=== PATIENT | male | born 1970 | race African-American/Black ===

== ENCOUNTER 2017-10-07 17:26 | Emergency (ER) | payer SELFPAY ==
[~2017-10-07] VITALS: Ht 182.9 cm; Wt 80.0 kg
[~2017-10-07 17:26] MED LIST: HYDROCHLOROTHIAZIDE; METOPROLOL
[2017-10-07 17:38] VITALS: BP 153/91
== END 2017-10-07 18:23 | disposition left against medical advice (07) ==
LOC: ER 18:02
DX: Z00.8 Encounter for other general examination (principal); Z53.21 Procedure and treatment not carried out due to patient leaving prior to being seen by health care provider

== ENCOUNTER 2017-11-20 11:38 | Emergency (ER) | payer SELFPAY ==
[~2017-11-20] VITALS: Ht 182.9 cm; Wt 78.0 kg
[2017-11-20] MEDS ORDERED: TETRACAINE 0.5% OPHTH DROPS 4ML LEFTEYE ONE (18:00)
[2017-11-20] MEDS ORDERED: FLUORESCEIN SODIUM 1MG/STRIP RIGHTEYE ONE (18:15)
[2017-11-20 19:00] VITALS: BP 148/85
== END 2017-11-20 19:08 | disposition home or self-care (01) ==
LOC: ER 13:04
DX: S05.11XA Contusion of eyeball and orbital tissues, right eye, initial encounter (principal); S05.01XA Injury of conjunctiva and corneal abrasion without foreign body, right eye, initial encounter; S09.93XA Unspecified injury of face, initial encounter; I10 Essential (primary) hypertension; X58.XXXA Exposure to other specified factors, initial encounter; Y93.89 Activity, other specified; Y92.89 Other specified places as the place of occurrence of the external cause
CPT/HCPCS: 70486; 99284

== ENCOUNTER 2017-12-11 08:09 | Inpatient (IN) | payer SELFPAY ==
[~2017-12-11] VITALS: Ht 182.9 cm; Wt 78.0 kg
[2017-12-11] MEDS ORDERED: KETOROLAC 30MG/ML VIAL IV STA (10:57)
[2017-12-11] MEDS ORDERED: SODIUM CHLORIDE 0.9% 1,000 ML IV ONE (10:57)
[2017-12-11 11:25] LABS: HEMATOCRIT. 36.1 % (42.0-52.0); HEMOGLOBIN. 12.2 g/dL (14.0-18.0); MEAN CORPUSCULAR HEMOGLOBIN 35.1 pg (28.0-32.0); MEAN CORPUSCULAR VOLUME 103.6 fL (80.0-94.0); MEAN PLATELET VOLUME 8.2 fl (7.4-10.4); PLATELET 338 x1000/uL (130-400); RED BLOOD CELL COUNT 3.48 mill/uL (4.7-6.1)
[2017-12-11 11:29] LABS: CHLORIDE 101 mEq/L (98-107)
[2017-12-11 11:31] LABS: INR 0.9; PROTHROMBIN TIME 9.2 sec (9.4-11.6)
[2017-12-11 12:01] LABS: CLARITY URINE CLOUDY (CLEAR); COLOR URINE YELLOW (YELLOW); KETONES URINE TRACE (NEGATIVE); LEUKOCYTE ESTERASE URINE 1+ (NEGATIVE); NITRITE URINE NEGATIVE (NEGATIVE); OCCULT BLOOD URINE NEGATIVE (NEGATIVE); PROTEIN URINE 1+ (NEGATIVE); SPECIFIC GRAVITY URINE 1.021 (1.005-1.030); UROBILINOGEN URINE 0.2 E.U./dL (0.2-1.0)
[2017-12-11 12:07] LABS: PLATELET ESTIMATE NORMAL
[2017-12-11] MEDS ORDERED: VANCOMYCIN 1 G PREMIX 200 ML IV SCH ×2 (13:45→15:15)
[2017-12-11] MEDS ORDERED: ONDANSETRON HCL 4MG/2ML VIAL IV PRN (15:15)
[2017-12-11] MEDS ORDERED: ACETAMINOPHEN 325MG TABLET PO PRN (15:15)
[2017-12-11] MEDS: CLONIDINE 0.1MG TABLET PO PRN (15:26)
[2017-12-11] MEDS ORDERED: PIPERACILLIN/TAZ 3.375G PREMIX 50 ML IV NR (16:00)
[2017-12-11] MEDS: HYDROCODONE/ACETAMINOPHEN 5/325MG TABLET PO PRN ×2 (16:47→19:55)
[2017-12-11 17:00] VITALS: BP 117/77
[2017-12-11 20:00] VITALS: BP 141/80
[2017-12-11] MEDS: PIPERACILLIN/TAZ 3.375G PREMIX 50 ML IV SCH (20:27)
[2017-12-11] MEDS ORDERED: VANCOMYCIN 500 MG PREMIX 100 ML IV SCH (22:00)
[2017-12-12] VITALS: BP 155/83
[2017-12-12] MEDS: CLONIDINE 0.1MG TABLET PO PRN ×2 (00:54→10:03)
[2017-12-12] MEDS: HYDROCODONE/ACETAMINOPHEN 5/325MG TABLET PO PRN ×3 (00:55→10:03)
[2017-12-12] MEDS ORDERED: LISI10TA5 MT (01:51)
[2017-12-12] MEDS ORDERED: ALLO100T MT (01:51)
[2017-12-12 04:00] VITALS: BP 157/94
[2017-12-12] MEDS: PIPERACILLIN/TAZ 3.375G PREMIX 50 ML IV SCH ×2 (04:52→10:02)
[2017-12-12 05:58] LABS: BASOPHILS % 0.2 % (0.0-2.0); EOSINOPHILS % 0.9 % (0.0-5.0); HEMATOCRIT. 31.5 % (42.0-52.0); HEMOGLOBIN. 10.4 g/dL (14.0-18.0); LYMPHOCYTES % 9.5 % (20.0-50.0); MEAN CORPUSCULAR HEMOGLOBIN 34.5 pg (28.0-32.0); MEAN CORPUSCULAR VOLUME 104.4 fL (80.0-94.0); MEAN PLATELET VOLUME 8.5 fl (7.4-10.4); MONOCYTES % 11.1 % (2.0-8.0); NEUTROPHILS % 78.3 % (40.0-76.0); PLATELET 291 x1000/uL (130-400); RED BLOOD CELL COUNT 3.02 mill/uL (4.7-6.1); RED CELL DISTRIBUTION WIDTH 14.9 % (11.6-14.6)
[2017-12-12 06:35] LABS: CHLORIDE 103 mEq/L (98-107)
[2017-12-12 08:00] VITALS: BP 180/108
[2017-12-12] MEDS ORDERED: ALLOPURINOL 300 MG TABLET PO SCH (09:00)
[2017-12-12] MEDS ORDERED: AMLODIPINE 10MG TABLET PO SCH (09:00)
[2017-12-12 09:30] VITALS: BP 173/106
[2017-12-12] MEDS ORDERED: POTASSIUM CHLORIDE 20MEQ TABLET SR PO SCH (10:00)
[2017-12-12] MEDS ORDERED: VANCOMYCIN 750 MG PREMIX 150 ML IV SCH (10:00)
[2017-12-12 11:24] VITALS: BP 169/92
[2017-12-12 12:00] VITALS: BP 131/75
[2017-12-12] MEDS ORDERED: PIPERACILLIN/TAZ 3.375G PREMIX 50 ML IV SCH (18:00)
== END 2017-12-12 13:30 | disposition home or self-care (01) | DRG 383 ==
LOC: ER 08:59 → 6EST 14:07 → OBSVTOIN 14:07 → ENRESERV 14:33 → SUPCPDRO 15:09
PROVIDERS: ADMIT Hospitalist; ATTEND Hospitalist
DX: L03.113 Cellulitis of right upper limb (principal); N17.9 Acute kidney failure, unspecified; E87.6 Hypokalemia; I10 Essential (primary) hypertension; F17.200 Nicotine dependence, unspecified, uncomplicated; F12.90 Cannabis use, unspecified, uncomplicated; M10.9 Gout, unspecified; M70.20 Olecranon bursitis, unspecified elbow; Z79.899 Other long term (current) drug therapy
CPT/HCPCS: 36415; 73080; 73130; 80053; 81003; 83605; 84550; 85025; 85610; 87040; 96365; 96366; 96375; 99285; J1885; J2543; J3370; J7030

== ENCOUNTER 2017-12-16 09:18 | Inpatient (IN) | payer SELFPAY ==
[~2017-12-16] VITALS: Ht 182.9 cm; Wt 77.2 kg
[~2017-12-16 09:18] MED LIST changes: +ALLO100T MT; +LISI10TA5 MT
[2017-12-16] MEDS ORDERED: METHYLPREDNISOLONE SOD SUCC 40 MG/ML VIAL IV ONE (10:30)
[2017-12-16] MEDS ORDERED: DIPHENHYDRAMINE 50MG/ML VIAL IV ONE (10:30)
[2017-12-16] MEDS ORDERED: MORPHINE SULFATE 4 MG/ML CPJ (NOT FOR IM USE) IV ONE (11:30)
[2017-12-16 11:38] LABS: BASOPHILS % 0.6 % (0.0-2.0); EOSINOPHILS % 1.1 % (0.0-5.0); HEMATOCRIT. 30.2 % (42.0-52.0); LYMPHOCYTES % 9.5 % (20.0-50.0); MEAN CORPUSCULAR HEMOGLOBIN 34.1 pg (28.0-32.0); MEAN PLATELET VOLUME 7.3 fl (7.4-10.4); MONOCYTES % 10.1 % (2.0-8.0); NEUTROPHILS % 78.7 % (40.0-76.0); PLATELET 374 x1000/uL (130-400); RED BLOOD CELL COUNT 2.93 mill/uL (4.7-6.1); RED CELL DISTRIBUTION WIDTH 14.7 % (11.6-14.6)
[2017-12-16 11:44] LABS: CHLORIDE 108 mEq/L (98-107)
[2017-12-16 11:53] LABS: INR 0.9; PROTHROMBIN TIME 9.8 sec (9.4-11.6)
[2017-12-16 18:00] VITALS: BP 158/98
[2017-12-16] MEDS ORDERED: LISI40TA4 MT (18:11)
[2017-12-16] MEDS ORDERED: SULF1TAB47 MT (18:13)
[2017-12-16] MEDS ORDERED: MAGNESIUM/ALUMINUM HYDROXIDE/SIMETHICONE 30ML UDC PO PRN (19:00)
[2017-12-16] MEDS ORDERED: ONDANSETRON HCL 4MG/2ML VIAL IV PRN (19:00)
[2017-12-16] MEDS ORDERED: HYDROCODONE/ACETAMINOPHEN 5/325MG TABLET PO PRN (19:00)
[2017-12-16] MEDS ORDERED: ACETAMINOPHEN 325MG TABLET PO PRN (19:00)
[2017-12-16] MEDS ORDERED: NA PHOS,M-B/NA PHOS,DI-BA ENEMA 118ML PR PRN (19:00)
[2017-12-16] MEDS ORDERED: DOCUSATE SODIUM 100MG CAPSULE PO PRN (19:00)
[2017-12-16] MEDS ORDERED: GUAIFENESIN 200MG/10ML SUGAR FREE UDC PO PRN (19:00)
[2017-12-16] MEDS ORDERED: HYDROMORPHONE HCL/PF 2MG/ML CPJ IV PRN (19:00)
[2017-12-16] MEDS ORDERED: IPRATROPIUM/ALBUTEROL 0.5-3(2.5)MG/3ML NEB INH PRN (19:00)
[2017-12-16] MEDS ORDERED: DIPHENHYDRAMINE 50MG/ML VIAL IV PRN (19:00)
[2017-12-16] MEDS ORDERED: LORAZEPAM 2MG/ML CPJ IV PRN (19:00)
[2017-12-16] MEDS ORDERED: LORAZEPAM 0.5MG TABLET PO PRN (19:15)
[2017-12-16 20:00] VITALS: BP 162/90
[2017-12-16] MEDS ORDERED: ENOXAPARIN 40MG/0.4ML SYR SUBCUT SCH (20:00)
[2017-12-16] MEDS: METHYLPREDNISOLONE SOD SUCC 125 MG/2 ML VIAL IV SCH (21:12)
[2017-12-16] MEDS: CLONIDINE 0.1MG TABLET PO PRN (21:14)
[2017-12-16 23:17] LABS: CHLORIDE 106 mEq/L (98-107)
[2017-12-16 23:20] LABS: CLARITY URINE CLEAR (CLEAR); COLOR URINE YELLOW (YELLOW); KETONES URINE NEGATIVE (NEGATIVE); LEUKOCYTE ESTERASE URINE NEGATIVE (NEGATIVE); NITRITE URINE NEGATIVE (NEGATIVE); OCCULT BLOOD URINE NEGATIVE (NEGATIVE); PROTEIN URINE NEGATIVE (NEGATIVE); SPECIFIC GRAVITY URINE 1.018 (1.005-1.030); UROBILINOGEN URINE 0.2 E.U./dL (0.2-1.0)
[2017-12-17] VITALS: BP 161/87
[2017-12-17 00:28] LABS: *BENZODIAZEPINES SCREEN URINE NEGATIVE (NEGATIVE)
[2017-12-17 00:29] LABS: *COCAINE SCREEN URINE NEGATIVE (NEGATIVE)
[2017-12-17 00:30] LABS: *AMPHETAMINES SCREEN URINE NEGATIVE (NEGATIVE); CANNABINOID URINE SCREEN PRESUMTIVE POSITIVE (NEGATIVE); METHADONE URINE SCREEN NEGATIVE (NEGATIVE); OPIATES URINE SCREEN PRESUMTIVE POSITIVE (NEGATIVE); PHENCYCLIDINE URINE SCREEN NEGATIVE (NEGATIVE)
[2017-12-17 00:39] LABS: *BARBITURATES SCREEN URINE NEGATIVE (NEGATIVE)
[2017-12-17] MEDS: METHYLPREDNISOLONE SOD SUCC 125 MG/2 ML VIAL IV SCH ×2 (02:16→06:59)
[2017-12-17 04:00] VITALS: BP 172/100
[2017-12-17] MEDS: CLONIDINE 0.1MG TABLET PO PRN (04:34)
[2017-12-17 07:10] LABS: HEMATOCRIT. 31.8 % (42.0-52.0); HEMOGLOBIN. 10.6 g/dL (14.0-18.0); MEAN CORPUSCULAR HEMOGLOBIN 34.1 pg (28.0-32.0); MEAN CORPUSCULAR VOLUME 102.8 fL (80.0-94.0); MEAN PLATELET VOLUME 7.9 fl (7.4-10.4); PLATELET 429 x1000/uL (130-400); RED CELL DISTRIBUTION WIDTH 14.6 % (11.6-14.6)
[2017-12-17 07:45] LABS: CHLORIDE 106 mEq/L (98-107)
[2017-12-17 07:47] LABS: PLATELET ESTIMATE INCREASED
[2017-12-17 07:53] LABS: LDL CHOLESTEROL 99 mg/dL (5-100)
[2017-12-17 07:55] LABS: HDL CHOLESTEROL 60 mg/dL (40-59); T4 FREE 0.76 ng/dL (0.76-1.46)
[2017-12-17 08:10] VITALS: BP 152/73
[2017-12-17] MEDS ORDERED: ASPIRIN 81MG EC TABLET PO SCH (09:00)
== END 2017-12-17 08:40 | disposition home or self-care (01) | DRG 811 ==
LOC: ER 10:27 → 5WST 15:01 → EDBEDREQ 15:16 → ENRESERV 15:19 → ER 17:20 → CANBEDREQ 17:45
PROVIDERS: ADMIT Internal Medicine; ATTEND Internal Medicine
DX: T78.3XXA Angioneurotic edema, initial encounter (principal); N17.0 Acute kidney failure with tubular necrosis; R65.10 Systemic inflammatory response syndrome (SIRS) of non-infectious origin without acute organ dysfunction; E88.09 Other disorders of plasma-protein metabolism, not elsewhere classified; E87.70 Fluid overload, unspecified; F17.210 Nicotine dependence, cigarettes, uncomplicated; I10 Essential (primary) hypertension; I25.10 Atherosclerotic heart disease of native coronary artery without angina pectoris; Z79.899 Other long term (current) drug therapy; Z88.8 Allergy status to other drugs, medicaments and biological substances
CPT/HCPCS: 36415; 71045; 80048; 80053; 80061; 80305; 81003; 83036; 83735; 83880; 84439; 84443; 84484; 85025; 85610; 85651; 93005; 96374; 96375; 99285; J1200; J1650; J2270; J2920; J2930; J7030

== ENCOUNTER 2017-12-20 09:00 | Emergency (ER) | payer MEDICAID ==
[~2017-12-20] VITALS: Ht 182.9 cm; Wt 78.0 kg
[~2017-12-20 09:00] MED LIST changes: -HYDROCHLOROTHIAZIDE; -LISI10TA5 MT; -METOPROLOL; +SULF1TAB47 MT
[2017-12-20] MEDS ORDERED: KETOROLAC 30MG/ML VIAL IV STA (09:51)
[2017-12-20] MEDS ORDERED: LEVOFLOXACIN 750MG PREMIX 150 ML IV ONE (10:00)
[2017-12-20] MEDS: VANCOMYCIN 1 G PREMIX 200 ML IV SCH ×2 (10:20→12:27)
[2017-12-20 10:28] LABS: BASOPHILS % 0.7 % (0.0-2.0); EOSINOPHILS % 1.6 % (0.0-5.0); HEMATOCRIT. 31.1 % (42.0-52.0); HEMOGLOBIN. 10.4 g/dL (14.0-18.0); MEAN CORPUSCULAR HEMOGLOBIN 34.3 pg (28.0-32.0); MEAN CORPUSCULAR VOLUME 102.3 fL (80.0-94.0); MEAN PLATELET VOLUME 7.3 fl (7.4-10.4); MONOCYTES % 11.7 % (2.0-8.0); PLATELET 442 x1000/uL (130-400); RED BLOOD CELL COUNT 3.03 mill/uL (4.7-6.1); RED CELL DISTRIBUTION WIDTH 14.3 % (11.6-14.6)
[2017-12-20 10:31] LABS: CHLORIDE 109 mEq/L (98-107)
[2017-12-20 10:32] LABS: INR 0.9; PROTHROMBIN TIME 9.9 sec (9.4-11.6)
[2017-12-20 11:11] VITALS: BP 159/93
== END 2017-12-20 14:38 | disposition left against medical advice (07) ==
LOC: ER 10:30
DX: L03.113 Cellulitis of right upper limb (principal); M65.88 Other synovitis and tenosynovitis, other site; F17.200 Nicotine dependence, unspecified, uncomplicated; I10 Essential (primary) hypertension; M10.9 Gout, unspecified; F12.10 Cannabis abuse, uncomplicated; Z88.2 Allergy status to sulfonamides; Z88.8 Allergy status to other drugs, medicaments and biological substances; Z98.890 Other specified postprocedural states
CPT/HCPCS: 36415; 80053; 85025; 85610; 96365; 96375; 99284; J1885; J1956; J3370; J7040; Z7610

== ENCOUNTER 2019-05-24 12:16 | Emergency (ER) | payer SELFPAY ==
[~2019-05-24] VITALS: Ht 180.3 cm; Wt 75.0 kg
[2019-05-24] MEDS ORDERED: SODIUM CHLORIDE 0.9% 1,000 ML IV ONE ×2 (12:52→14:30)
[2019-05-24 13:48] LABS: BASOPHILS % 0.2 % (0.0-2.0); CHLORIDE 104 mEq/L (98-107); EOSINOPHILS % 0.5 % (0.0-5.0); HEMATOCRIT. 40.2 % (42.0-52.0); HEMOGLOBIN. 13.7 g/dL (14.0-18.0); LYMPHOCYTES % 8.5 % (20.0-50.0); MEAN CORPUSCULAR HEMOGLOBIN 34.8 pg (28.0-32.0); MEAN CORPUSCULAR VOLUME 102.2 fL (80.0-94.0); MEAN PLATELET VOLUME 8.1 fl (7.4-10.4); MONOCYTES % 5.8 % (2.0-8.0); PLATELET 114 x1000/uL (130-400); RED BLOOD CELL COUNT 3.94 mill/uL (4.7-6.1); RED CELL DISTRIBUTION WIDTH 21.2 % (11.6-14.6)
[2019-05-24 13:56] LABS: ETHANOL BLOOD < 10 mg/dL
[2019-05-24] MEDS ORDERED: LORAZEPAM 1MG TABLET PO ONE (14:30)
[2019-05-24] MEDS ORDERED: POTASSIUM CHLORIDE 20MEQ TABLET SR PO ONE (15:15)
[2019-05-24 15:22] VITALS: BP 162/89
[2019-05-24 16:04] LABS: CLARITY URINE CLOUDY (CLEAR); COLOR URINE DARK YELLOW (YELLOW); KETONES URINE 1+ (NEGATIVE); LEUKOCYTE ESTERASE URINE TRACE (NEGATIVE); NITRITE URINE POSITIVE (NEGATIVE); OCCULT BLOOD URINE NEGATIVE (NEGATIVE); PH URINE 5.5 (4.5-8.0); PROTEIN URINE 3+ (NEGATIVE); SPECIFIC GRAVITY URINE 1.032 (1.005-1.030)
[2019-05-24 16:18] LABS: OPIATES URINE SCREEN NEGATIVE (NEGATIVE)
[2019-05-24 16:20] LABS: *AMPHETAMINES SCREEN URINE NEGATIVE (NEGATIVE); *BARBITURATES SCREEN URINE NEGATIVE (NEGATIVE); *BENZODIAZEPINES SCREEN URINE PRESUMTIVE POSITIVE (NEGATIVE); *COCAINE SCREEN URINE NEGATIVE (NEGATIVE); CANNABINOID URINE SCREEN PRESUMTIVE POSITIVE (NEGATIVE); METHADONE URINE SCREEN NEGATIVE (NEGATIVE); PHENCYCLIDINE URINE SCREEN NEGATIVE (NEGATIVE)
== END 2019-05-24 15:22 | disposition home or self-care (01) ==
LOC: ER 12:16
DX: R53.1 Weakness (principal); R42 Dizziness and giddiness; R00.2 Palpitations; F12.10 Cannabis abuse, uncomplicated; I10 Essential (primary) hypertension; M10.9 Gout, unspecified; Z88.2 Allergy status to sulfonamides; Z88.8 Allergy status to other drugs, medicaments and biological substances
CPT/HCPCS: 36415; 71045; 80053; 80305; 80320; 81003; 85025; 93005; 96360; 96361; 99284; J7030; G0480

== ENCOUNTER 2019-06-10 08:13 | Inpatient (IN) | payer SELFPAY ==
[~2019-06-10] VITALS: Ht 182.9 cm; Wt 78.0 kg
[2019-06-10] MEDS ORDERED: KETOROLAC 30MG/ML VIAL IV STA (10:11)
[2019-06-10] MEDS ORDERED: ONDANSETRON HCL 4MG/2ML INJ IV STA (10:11)
[2019-06-10] MEDS ORDERED: SODIUM CHLORIDE 0.9% 1,000 ML IV ONE (10:11)
[2019-06-10] MEDS ORDERED: HYDRALAZINE 20MG/ML VIAL IV ONE ×2 (10:15→13:30)
[2019-06-10 12:15] LABS: BASOPHILS % 0.2 % (0.0-2.0); EOSINOPHILS % 0.7 % (0.0-5.0); HEMATOCRIT. 32.1 % (42.0-52.0); HEMOGLOBIN. 11.1 g/dL (14.0-18.0); LYMPHOCYTES % 7.2 % (20.0-50.0); MEAN CORPUSCULAR HEMOGLOBIN 36.2 pg (28.0-32.0); MEAN CORPUSCULAR VOLUME 104.2 fL (80.0-94.0); MEAN PLATELET VOLUME 8.4 fl (7.4-10.4); MONOCYTES % 11.3 % (2.0-8.0); NEUTROPHILS % 80.6 % (40.0-76.0); PLATELET 98 x1000/uL (130-400); RED BLOOD CELL COUNT 3.08 mill/uL (4.7-6.1); RED CELL DISTRIBUTION WIDTH 18.3 % (11.6-14.6)
[2019-06-10] MEDS ORDERED: CLONIDINE 0.2MG TABLET PO ONE (12:15)
[2019-06-10 12:20] LABS: CHLORIDE 104 mEq/L (98-107)
[2019-06-10 12:24] LABS: ETHANOL BLOOD < 10 mg/dL
[2019-06-10 12:25] LABS: D-DIMER 3.07 mg/L FEU (<0.50); INR 0.9; PARTIAL THROMBOPLASTIN TIME 30.4 sec (23.4-31.0); PROTHROMBIN TIME 9.7 sec (9.6-11.0)
[2019-06-10] MEDS ORDERED: POTASSIUM CHLORIDE 20MEQ TABLET SR PO ONE (13:30)
[2019-06-10] MEDS ORDERED: ASPIRIN 325MG EC TABLET PO ONE (13:30)
[2019-06-10] MEDS ORDERED: DOCUSATE SODIUM 100MG CAPSULE PO PRN (14:45)
[2019-06-10] MEDS ORDERED: NITROGLYCERIN 0.4MG TABLET SL SL PRN (14:45)
[2019-06-10] MEDS ORDERED: IPRATROPIUM/ALBUTEROL 0.5-3(2.5)MG/3ML NEB NEB PRN (14:45)
[2019-06-10] MEDS ORDERED: ONDANSETRON HCL 4MG/2ML INJ IV PRN (14:45)
[2019-06-10] MEDS ORDERED: ZOLPIDEM TARTRATE 5MG TABLET PO PRN (14:45)
[2019-06-10] MEDS ORDERED: GUAIFENESIN 200MG/10ML SUGAR FREE UDC PO PRN (14:45)
[2019-06-10] MEDS ORDERED: MAGNESIUM/ALUMINUM HYDROXIDE/SIMETHICONE 30ML UDC PO PRN (14:45)
[2019-06-10] MEDS ORDERED: CLONIDINE 0.1MG TABLET PO PRN (14:45)
[2019-06-10] MEDS ORDERED: LORAZEPAM 0.5MG TABLET PO PRN (14:45)
[2019-06-10 15:42] LABS: CLARITY URINE CLEAR (CLEAR); COLOR URINE YELLOW (YELLOW); KETONES URINE NEGATIVE (NEGATIVE); LEUKOCYTE ESTERASE URINE NEGATIVE (NEGATIVE); NITRITE URINE NEGATIVE (NEGATIVE); OCCULT BLOOD URINE NEGATIVE (NEGATIVE); PH URINE 5.5 (4.5-8.0); PROTEIN URINE TRACE (NEGATIVE); SPECIFIC GRAVITY URINE 1.011 (1.005-1.030); UROBILINOGEN URINE 0.2 E.U./dL (0.2-1.0)
[2019-06-10 16:28] LABS: CANNABINOID URINE SCREEN PRESUMTIVE POSITIVE (NEGATIVE)
[2019-06-10 16:29] LABS: *AMPHETAMINES SCREEN URINE NEGATIVE (NEGATIVE); *BARBITURATES SCREEN URINE NEGATIVE (NEGATIVE); *BENZODIAZEPINES SCREEN URINE NEGATIVE (NEGATIVE); *COCAINE SCREEN URINE NEGATIVE (NEGATIVE); METHADONE URINE SCREEN NEGATIVE (NEGATIVE); OPIATES URINE SCREEN NEGATIVE (NEGATIVE)
[2019-06-10 16:30] VITALS: BP_SYST 158; BP_SYST 174; BP_DIAS 88; BP_DIAS 94
[2019-06-10 16:30] LABS: PHENCYCLIDINE URINE SCREEN NEGATIVE (NEGATIVE)
[2019-06-10 16:41] LABS: FOLIC ACID (FOLATE) SERUM 10.4 ng/mL (>5.38)
[2019-06-10] MEDS: AMLODIPINE 10MG TABLET PO SCH (16:54)
[2019-06-10] MEDS: ACETAMINOPHEN 325MG TABLET PO PRN (16:54)
[2019-06-10] MEDS ORDERED: ENOXAPARIN 40MG/0.4ML SYR SUBCUT SCH (17:00)
[2019-06-10] MEDS: KETOROLAC 15MG/ML VIAL IV PRN (18:40)
[2019-06-10 20:00] VITALS: BP 127/76
[2019-06-10] MEDS: FAMOTIDINE 20MG TABLET PO SCH (21:05)
[2019-06-10] MEDS: ALLOPURINOL 100 MG TABLET PO SCH (21:08)
[2019-06-11] VITALS: BP 152/95
[2019-06-11 00:05] LABS: CREATINE KINASE 53 IU/L (39-308)
[2019-06-11 00:06] LABS: CREATINE KINASE MB FRACTION < 1.0 ng/mL (0.5-3.6)
[2019-06-11] MEDS: ACETAMINOPHEN 325MG TABLET PO PRN (00:40)
[2019-06-11 06:00] VITALS: BP 143/100
[2019-06-11 06:13] LABS: BASOPHILS % 0.2 % (0.0-2.0); HEMATOCRIT. 31.1 % (42.0-52.0); HEMOGLOBIN. 10.7 g/dL (14.0-18.0); LYMPHOCYTES % 16.4 % (20.0-50.0); MEAN CORPUSCULAR HEMOGLOBIN 36.4 pg (28.0-32.0); MEAN CORPUSCULAR VOLUME 106.3 fL (80.0-94.0); MEAN PLATELET VOLUME 9.1 fl (7.4-10.4); NEUTROPHILS % 66.4 % (40.0-76.0); PLATELET 116 x1000/uL (130-400); RED BLOOD CELL COUNT 2.93 mill/uL (4.7-6.1); RED CELL DISTRIBUTION WIDTH 18.4 % (11.6-14.6)
[2019-06-11 06:34] LABS: CHLORIDE 106 mEq/L (98-107)
[2019-06-11 06:46] LABS: CREATINE KINASE 48 IU/L (39-308)
[2019-06-11] MEDS: FAMOTIDINE 20MG TABLET PO SCH (06:46)
[2019-06-11 06:49] LABS: CREATINE KINASE MB FRACTION < 1.0 ng/mL (0.5-3.6)
[2019-06-11 08:00] VITALS: BP 164/100
[2019-06-11] MEDS ORDERED: BUTALBITAL/ACETAMINOPHEN/CAFFEINE 50/325/40MG TABLET PO PRN (08:00)
[2019-06-11] MEDS: KETOROLAC 15MG/ML VIAL IV PRN (08:15)
[2019-06-11] MEDS: ALLOPURINOL 100 MG TABLET PO SCH (08:19)
[2019-06-11] MEDS: AMLODIPINE 10MG TABLET PO SCH (08:19)
[2019-06-11] MEDS ORDERED: CYANOCOBALAMIN 1000MCG/ML VIAL IM SCH (09:00)
[2019-06-11] MEDS ORDERED: ASPIRIN 81MG EC TABLET PO SCH (09:00)
[2019-06-11] MEDS ORDERED: POTASSIUM CHLORIDE 20MEQ/PACKET PO NR (11:15)
[2019-06-11] MEDS ORDERED: HYDRALAZINE HCL 50MG TABLET PO SCH (11:15)
[2019-06-11 12:00] VITALS: BP 157/86
[2019-06-11 12:34] VITALS: BP 157/86
== END 2019-06-11 13:42 | disposition home or self-care (01) | DRG 203 ==
LOC: ER 08:22 → 6WST 14:24 → ENRESERV 14:30
PROVIDERS: ADMIT Internal Medicine; ATTEND Internal Medicine
DX: R07.89 Other chest pain (principal); N17.0 Acute kidney failure with tubular necrosis; E44.0 Moderate protein-calorie malnutrition; D51.9 Vitamin B12 deficiency anemia, unspecified; E83.51 Hypocalcemia; Z68.41 Body mass index [BMI] 40.0-44.9, adult; E87.6 Hypokalemia; I10 Essential (primary) hypertension; M10.9 Gout, unspecified; F12.10 Cannabis abuse, uncomplicated; Z71.51 Drug abuse counseling and surveillance of drug abuser; Z91.11 Patient's noncompliance with dietary regimen; Z91.14 Patient's other noncompliance with medication regimen; Z88.2 Allergy status to sulfonamides; Z88.8 Allergy status to other drugs, medicaments and biological substances
CPT/HCPCS: 36415; 70551; 71045; 78582; 80061; 80305; 80320; 81003; 82550; 82553; 82607; 82746; 83036; 83540; 83550; 83880; 84484; 84550; 85379; 93005; 93970; 96361; 96374; 96375; 99285; A9558; J0360; J1650; J1885; J2405; J3420; J7030; G0480

== ENCOUNTER 2019-09-16 14:37 | Inpatient (IN) | payer SELFPAY ==
[~2019-09-16] VITALS: Ht 182.9 cm; Wt 81.6 kg
[2019-09-16] MEDS ORDERED: ENOXAPARIN 100MG/ML SYR SUBCUT ONE (15:15)
[2019-09-16 17:17] LABS: BASOPHILS % 0.7 % (0.0-2.0); EOSINOPHILS % 0.4 % (0.0-5.0); HEMATOCRIT. 34.5 % (42.0-52.0); HEMOGLOBIN. 11.5 g/dL (14.0-18.0); LYMPHOCYTES % 12.9 % (20.0-50.0); MEAN CORPUSCULAR HEMOGLOBIN 38.1 pg (28.0-32.0); MEAN CORPUSCULAR VOLUME 113.8 fL (80.0-94.0); MEAN PLATELET VOLUME 8.3 fl (7.4-10.4); MONOCYTES % 9.8 % (2.0-8.0); NEUTROPHILS % 76.2 % (40.0-76.0); PLATELET 152 x1000/uL (130-400); RED BLOOD CELL COUNT 3.03 mill/uL (4.7-6.1); RED CELL DISTRIBUTION WIDTH 16.2 % (11.6-14.6)
[2019-09-16 17:21] LABS: CHLORIDE 106 mEq/L (98-107)
[2019-09-16 17:23] LABS: PARTIAL THROMBOPLASTIN TIME 31.3 sec (23.4-31.0)
[2019-09-16 17:50] LABS: PLATELET ESTIMATE NORMAL
[2019-09-16] MEDS ORDERED: GUAIFENESIN 200MG/10ML SUGAR FREE UDC PO PRN (18:15)
[2019-09-16] MEDS ORDERED: ONDANSETRON HCL 4MG/2ML INJ IV PRN (18:15)
[2019-09-16] MEDS ORDERED: DOCUSATE SODIUM 100MG CAPSULE PO PRN (18:15)
[2019-09-16] MEDS ORDERED: ACETAMINOPHEN 325MG TABLET PO PRN (18:15)
[2019-09-16] MEDS ORDERED: MAGNESIUM/ALUMINUM HYDROXIDE/SIMETHICONE 30ML UDC PO PRN (18:15)
[2019-09-16] MEDS: CLONIDINE 0.1MG TABLET PO PRN (20:21)
[2019-09-16] MEDS: MORPHINE SULFATE 2 MG/ML CPJ (NOT FOR IM USE) IV PRN (20:21)
[2019-09-16 23:00] VITALS: BP 155/96
[2019-09-17] MEDS ORDERED: HYDR25TA PO (00:34)
[2019-09-17] MEDS ORDERED: COLC0.6C3 PO (00:34)
[2019-09-17] MEDS ORDERED: ALLO1POW PO (00:34)
[2019-09-17] MEDS ORDERED: AMLO10TA4 PO (00:34)
[2019-09-17] MEDS ORDERED: LEVOFLOXACIN 500MG PREMIX 100 ML IV SCH ×2 (01:00→21:00)
[2019-09-17] MEDS: MORPHINE SULFATE 2 MG/ML CPJ (NOT FOR IM USE) IV PRN ×3 (01:54→13:26)
[2019-09-17] MEDS: ENOXAPARIN 80MG/0.8ML SYR SUBCUT SCH ×2 (03:25→16:58)
[2019-09-17 04:00] VITALS: BP 167/100
[2019-09-17] MEDS: CLONIDINE 0.1MG TABLET PO PRN ×2 (06:18→11:22)
[2019-09-17 07:18] LABS: BASOPHILS % 0.2 % (0.0-2.0); EOSINOPHILS % 1.4 % (0.0-5.0); HEMATOCRIT. 30.7 % (42.0-52.0); HEMOGLOBIN. 10.4 g/dL (14.0-18.0); LYMPHOCYTES % 11.9 % (20.0-50.0); MEAN CORPUSCULAR HEMOGLOBIN 38.8 pg (28.0-32.0); MEAN CORPUSCULAR VOLUME 114.5 fL (80.0-94.0); MEAN PLATELET VOLUME 8.4 fl (7.4-10.4); NEUTROPHILS % 73.5 % (40.0-76.0); PLATELET 145 x1000/uL (130-400); RED BLOOD CELL COUNT 2.68 mill/uL (4.7-6.1); RED CELL DISTRIBUTION WIDTH 16.5 % (11.6-14.6)
[2019-09-17 07:35] LABS: CHLORIDE 105 mEq/L (98-107)
[2019-09-17 08:00] VITALS: BP 158/101
[2019-09-17 08:03] LABS: HDL CHOLESTEROL 60 mg/dL (40-59)
[2019-09-17 08:04] LABS: LDL CHOLESTEROL 91 mg/dL (5-100)
[2019-09-17 08:10] LABS: BG BASE EXCESS 0.7 mmol/L (-2.0-2.0); BG CARBOXYHEMOGLOBIN 0.3 % (0.5-1.5); BG DEOXYHEMOGLOBIN 2.2 % (0.0-5.0); BG FRACTION INSPIRED OXYGEN 21; BG HCO3 ACT 21.8 mmol/L (22.0-26.0); BG METHEMOGLOBIN 0.3 % (0.0-1.5); BG OXYGEN SATURATION 97.8 % (92.0-98.5); BG OXYHEMOGLOBIN 97.2 % (94.0-97.0); BG PCO2 24.6 mmHg (35.0-45.0); BG PH 7.566 (7.350-7.450); BG SAMPLE SITE RIGHT BRACHIAL; BG TOTAL HEMOGLOBIN 10.7 g/dL (12.0-18.0); BG VENT MODE ROOM AIR
[2019-09-17] MEDS: INDOMETHACIN 25MG CAPSULE PO SCH ×3 (08:43→22:11)
[2019-09-17] MEDS: AMLODIPINE 10MG TABLET PO SCH ×2 (08:43→09:00)
[2019-09-17] MEDS: COLCHICINE 0.6MG TABLET PO SCH (08:43)
[2019-09-17] MEDS: NITROGLYCERIN 0.2MG/HR PATCH TOP SCH (09:00)
[2019-09-17 12:00] VITALS: BP 172/101
[2019-09-17] MEDS: HYDRALAZINE HCL 25MG TABLET PO SCH ×2 (13:25→22:11)
[2019-09-17 16:00] VITALS: BP 131/82
[2019-09-17 20:00] VITALS: BP 136/87
[2019-09-18 00:45] VITALS: BP 130/84
[2019-09-18 04:00] VITALS: BP 135/88
[2019-09-18] MEDS: HYDRALAZINE HCL 25MG TABLET PO SCH (06:20)
[2019-09-18] MEDS: ENOXAPARIN 80MG/0.8ML SYR SUBCUT SCH (06:20)
[2019-09-18] MEDS: INDOMETHACIN 25MG CAPSULE PO SCH (06:20)
[2019-09-18] MEDS: NITROGLYCERIN 0.2MG/HR PATCH TOP SCH (08:42)
[2019-09-18] MEDS: AMLODIPINE 10MG TABLET PO SCH (08:43)
[2019-09-18] MEDS: COLCHICINE 0.6MG TABLET PO SCH (08:43)
== END 2019-09-18 11:50 | disposition left against medical advice (07) | DRG 351 ==
LOC: ER 14:37 → EDBEDREQ 18:05 → ENRESERV 21:04 → 6WST 23:55
PROVIDERS: ADMIT Hospitalist; ATTEND Hospitalist
DX: M10.9 Gout, unspecified (principal); N17.9 Acute kidney failure, unspecified; I24.9 Acute ischemic heart disease, unspecified; I11.0 Hypertensive heart disease with heart failure; I50.9 Heart failure, unspecified; D72.829 Elevated white blood cell count, unspecified; R06.02 Shortness of breath; Z53.29 Procedure and treatment not carried out because of patient's decision for other reasons; D64.9 Anemia, unspecified; Z86.711 Personal history of pulmonary embolism; Z88.8 Allergy status to other drugs, medicaments and biological substances; Z88.2 Allergy status to sulfonamides
CPT/HCPCS: 36415; 36600; 71045; 78580; 80053; 80061; 82375; 82805; 83880; 84484; 84550; 85025; 93005; 93306; 93970; 96372; 99285; J1650; J1956; J2270; J2405

== ENCOUNTER 2019-09-26 13:21 | Inpatient (IN) | payer MEDICAID, OTHER ==
[~2019-09-26] VITALS: Ht 182.9 cm; Wt 78.0 kg
[~2019-09-26 13:21] MED LIST changes: -ALLO100T MT; +ALLO1POW PO; +AMLO10TA4 PO; +COLC0.6C3 PO; +HYDR25TA PO; -SULF1TAB47 MT
[2019-09-26] MEDS ORDERED: LORAZEPAM 2MG/ML CPJ IV ONE (14:30)
[2019-09-26] MEDS ORDERED: ASPIRIN 81MG TABLET PO ONE (14:30)
[2019-09-26 14:51] LABS: BASOPHILS % 0.8 % (0.0-2.0); EOSINOPHILS % 0.4 % (0.0-5.0); HEMATOCRIT. 33.3 % (42.0-52.0); HEMOGLOBIN. 11.5 g/dL (14.0-18.0); LYMPHOCYTES % 9.7 % (20.0-50.0); MEAN CORPUSCULAR HEMOGLOBIN 38.5 pg (28.0-32.0); MEAN CORPUSCULAR VOLUME 111.7 fL (80.0-94.0); MEAN PLATELET VOLUME 7.7 fl (7.4-10.4); MONOCYTES % 6.2 % (2.0-8.0); NEUTROPHILS % 82.9 % (40.0-76.0); PLATELET 399 x1000/uL (130-400); RED BLOOD CELL COUNT 2.98 mill/uL (4.7-6.1); RED CELL DISTRIBUTION WIDTH 16.7 % (11.6-14.6)
[2019-09-26 15:01] LABS: CHLORIDE 108 mEq/L (98-107)
[2019-09-26 15:02] LABS: PARTIAL THROMBOPLASTIN TIME 25.6 sec (23.4-31.0); PROTHROMBIN TIME 10.4 sec (9.6-11.0)
[2019-09-26 15:07] LABS: ETHANOL BLOOD 186 mg/dL
[2019-09-26 15:31] LABS: PLATELET ESTIMATE NORMAL
[2019-09-26] MEDS ORDERED: FUROSEMIDE 20MG/2ML VIAL IVP ONE (17:15)
[2019-09-26 18:24] LABS: CLARITY URINE CLEAR (CLEAR); COLOR URINE YELLOW (YELLOW); KETONES URINE NEGATIVE (NEGATIVE); LEUKOCYTE ESTERASE URINE NEGATIVE (NEGATIVE); NITRITE URINE NEGATIVE (NEGATIVE); OCCULT BLOOD URINE NEGATIVE (NEGATIVE); PH URINE 7.5 (4.5-8.0); PROTEIN URINE NEGATIVE (NEGATIVE); UROBILINOGEN URINE 0.2 E.U./dL (0.2-1.0)
[2019-09-26 18:47] LABS: *AMPHETAMINES SCREEN URINE NEGATIVE (NEGATIVE)
[2019-09-26 18:48] LABS: *BARBITURATES SCREEN URINE NEGATIVE (NEGATIVE); *BENZODIAZEPINES SCREEN URINE NEGATIVE (NEGATIVE); *COCAINE SCREEN URINE NEGATIVE (NEGATIVE); METHADONE URINE SCREEN NEGATIVE (NEGATIVE); OPIATES URINE SCREEN NEGATIVE (NEGATIVE)
[2019-09-26 18:49] LABS: CANNABINOID URINE SCREEN PRESUMTIVE POSITIVE (NEGATIVE); PHENCYCLIDINE URINE SCREEN NEGATIVE (NEGATIVE)
[2019-09-26] MEDS ORDERED: ACETAMINOPHEN 650MG SUPP PR PRN (20:15)
[2019-09-26] MEDS ORDERED: DIPHENHYDRAMINE 50MG/ML VIAL IV PRN (20:15)
[2019-09-26] MEDS ORDERED: CLONIDINE 0.1MG TABLET PO PRN (20:15)
[2019-09-26] MEDS ORDERED: NA PHOS,M-B/NA PHOS,DI-BA ENEMA 118ML PR PRN (20:15)
[2019-09-26] MEDS ORDERED: ONDANSETRON HCL 4MG/2ML INJ IV PRN (20:15)
[2019-09-26] MEDS ORDERED: ACETAMINOPHEN 325MG TABLET PO PRN (20:15)
[2019-09-26] MEDS ORDERED: ACETAMINOPHEN 650MG/20.3ML UDC GT PRN (20:15)
[2019-09-26] MEDS ORDERED: MAGNESIUM/ALUMINUM HYDROXIDE/SIMETHICONE 30ML UDC PO PRN (20:15)
[2019-09-26 22:15] VITALS: BP 166/96
[2019-09-26 22:30] VITALS: BP 161/96
[2019-09-26] MEDS ORDERED: THIAMINE HCL 100MG TABLET PO NR (22:30)
[2019-09-26] MEDS ORDERED: HYDROCODONE/ACETAMINOPHEN 5/325MG TABLET PO PRN (23:30)
[2019-09-26] MEDS: RIVAROXABAN 10 MG TABLET PO SCH (23:31)
[2019-09-26] MEDS: CHLORDIAZEPOXIDE 25MG CAPSULE PO SCH (23:31)
[2019-09-27] VITALS: BP 161/106
[2019-09-27] MEDS ORDERED: CEFTRIAXONE 1 G PREMIX 50 ML IV SCH
[2019-09-27 00:15] LABS: CREATINE KINASE 60 IU/L (39-308)
[2019-09-27 00:16] LABS: CREATINE KINASE MB FRACTION < 1.0 ng/mL (0.5-3.6)
[2019-09-27 04:00] VITALS: BP 142/94
[2019-09-27] MEDS: CHLORDIAZEPOXIDE 25MG CAPSULE PO SCH ×2 (06:13→14:03)
[2019-09-27] MEDS: RIVAROXABAN 10 MG TABLET PO SCH (09:27)
[2019-09-27 11:11] LABS: BASOPHILS % 0.6 % (0.0-2.0); EOSINOPHILS % 3.2 % (0.0-5.0); HEMATOCRIT. 33.5 % (42.0-52.0); HEMOGLOBIN. 11.3 g/dL (14.0-18.0); LYMPHOCYTES % 17.6 % (20.0-50.0); MEAN CORPUSCULAR HEMOGLOBIN 37.8 pg (28.0-32.0); MEAN CORPUSCULAR VOLUME 112.5 fL (80.0-94.0); MEAN PLATELET VOLUME 8.4 fl (7.4-10.4); MONOCYTES % 8.2 % (2.0-8.0); NEUTROPHILS % 70.4 % (40.0-76.0); PLATELET 351 x1000/uL (130-400); RED BLOOD CELL COUNT 2.98 mill/uL (4.7-6.1); RED CELL DISTRIBUTION WIDTH 17.1 % (11.6-14.6)
[2019-09-27 11:13] LABS: CHLORIDE 104 mEq/L (98-107)
[2019-09-27 11:20] LABS: LDL CHOLESTEROL 105 mg/dL (5-100)
[2019-09-27 11:21] LABS: CREATINE KINASE 60 IU/L (39-308); HDL CHOLESTEROL 65 mg/dL (40-59)
[2019-09-27 11:24] LABS: CREATINE KINASE MB FRACTION < 1.0 ng/mL (0.5-3.6)
[2019-09-27 12:00] VITALS: BP 155/97
[2019-09-27 16:00] VITALS: BP 160/99
[2019-09-27 16:48] VITALS: BP 160/99
[2019-10-24] MEDS ORDERED: GABA-290 MT (13:21)
[2019-10-24] MEDS ORDERED: METO-411 MT (13:21)
[2019-10-24] MEDS ORDERED: AMLO10TA80 MT (13:21)
[2019-10-24] MEDS ORDERED: ATOR40TA70 MT (13:21)
[2019-10-24] MEDS ORDERED: CLON0.1T PO (13:21)
== END 2019-09-27 16:55 | disposition home or self-care (01) | DRG 203 ==
LOC: ER 13:21 → 5WST 17:34 → EDBEDREQTM 17:37 → EDBEDREQ 17:37 → ENRESERV 21:06
PROVIDERS: ADMIT Family Medicine; ATTEND Family Medicine
DX: R07.89 Other chest pain (principal); I11.0 Hypertensive heart disease with heart failure; I50.9 Heart failure, unspecified; D72.829 Elevated white blood cell count, unspecified; F10.129 Alcohol abuse with intoxication, unspecified; M10.9 Gout, unspecified; Z86.711 Personal history of pulmonary embolism; Z88.9 Allergy status to unspecified drugs, medicaments and biological substances; Z88.8 Allergy status to other drugs, medicaments and biological substances; Z79.899 Other long term (current) drug therapy; Z88.1 Allergy status to other antibiotic agents
CPT/HCPCS: 36415; 71045; 80053; 80061; 80305; 80320; 81003; 82550; 82553; 83880; 84484; 85025; 93005; 96374; 99285; J0696; J1940; J2060; G0480

== ENCOUNTER 2019-10-28 11:41 | Emergency (ER) | payer MEDICAID ==
[~2019-10-28] VITALS: Ht 188 cm; Wt 78.2 kg
[~2019-10-28 11:41] MED LIST changes: -ALLO1POW PO; -AMLO10TA4 PO; +AMLO10TA80 MT; +ATOR40TA70 MT; +CLON0.1T PO; -COLC0.6C3 PO; +GABA-290 MT; -HYDR25TA PO; +METO-411 MT
[2019-10-28] MEDS ORDERED: RIVA10TA PO (11:58)
[2019-10-28] MEDS ORDERED: COLCHICINE 0.6MG TABLET PO NR (14:45)
[2019-10-28] MEDS ORDERED: HYDROCODONE/ACETAMINOPHEN 5/325MG TABLET PO NR (14:45)
[2019-10-28] MEDS ORDERED: DEXAMETHASONE 10 MG/ML VIAL IM NR (14:45)
[2019-10-28 16:15] VITALS: BP 115/65
== END 2019-10-28 16:18 | disposition home or self-care (01) ==
LOC: ER 11:41
DX: M10.09 Idiopathic gout, multiple sites (principal); I10 Essential (primary) hypertension; E78.00 Pure hypercholesterolemia, unspecified; Z86.718 Personal history of other venous thrombosis and embolism
CPT/HCPCS: 96372; 99283; J1100

== ENCOUNTER 2020-05-29 20:12 | Inpatient (IN) | payer MEDICAID ==
[~2020-05-29] VITALS: Ht 182.9 cm; Wt 78.0 kg
[2020-05-29] MEDS ORDERED: SODIUM CHLORIDE 0.9% 1,000 ML IV ONE (21:15)
[2020-05-29 23:22] LABS: BASOPHILS % 0.5 % (0.0-2.0); EOSINOPHILS % 3.9 % (0.0-5.0); HEMATOCRIT. 28.9 % (42.0-52.0); HEMOGLOBIN. 9.8 g/dL (14.0-18.0); LYMPHOCYTES % 37.8 % (20.0-50.0); MEAN CORPUSCULAR HEMOGLOBIN 39.7 pg (28.0-32.0); MEAN PLATELET VOLUME 8.4 fl (7.4-10.4); MONOCYTES % 11.7 % (2.0-8.0); NEUTROPHILS % 46.1 % (40.0-76.0); PLATELET 115 x1000/uL (130-400); RED BLOOD CELL COUNT 2.47 mill/uL (4.7-6.1); RED CELL DISTRIBUTION WIDTH 19.9 % (11.6-14.6)
[2020-05-29 23:24] LABS: CLARITY URINE CLEAR (CLEAR); COLOR URINE DARK YELLOW (YELLOW); KETONES URINE TRACE (NEGATIVE); LEUKOCYTE ESTERASE URINE TRACE (NEGATIVE); NITRITE URINE NEGATIVE (NEGATIVE); OCCULT BLOOD URINE NEGATIVE (NEGATIVE); PROTEIN URINE 1+ (NEGATIVE); SPECIFIC GRAVITY URINE 1.015 (1.005-1.030)
[2020-05-29 23:27] LABS: CHLORIDE 107 mEq/L (98-107)
[2020-05-29 23:31] LABS: ETHANOL BLOOD 285 mg/dL
[2020-05-29 23:39] LABS: *AMPHETAMINES SCREEN URINE NEGATIVE (NEGATIVE); *BARBITURATES SCREEN URINE NEGATIVE (NEGATIVE); *BENZODIAZEPINES SCREEN URINE NEGATIVE (NEGATIVE); *COCAINE SCREEN URINE NEGATIVE (NEGATIVE)
[2020-05-29 23:40] LABS: CANNABINOID URINE SCREEN PRESUMTIVE POSITIVE (NEGATIVE); METHADONE URINE SCREEN NEGATIVE (NEGATIVE); OPIATES URINE SCREEN NEGATIVE (NEGATIVE); PHENCYCLIDINE URINE SCREEN NEGATIVE (NEGATIVE)
[2020-05-30] VITALS (70 sets, daily range): BP systolic -3–234; BP diastolic -6–170
[2020-05-30] MEDS ORDERED: ASPIRIN 325MG EC TABLET PO ONE
[2020-05-30] MEDS ORDERED: CEFTRIAXONE 1 G PREMIX 50 ML IV ONE
[2020-05-30 00:05] LABS: PLATELET ESTIMATE SLIGHTLY DECREASED
[2020-05-30] MEDS ORDERED: MORPHINE SULFATE 2 MG/ML CPJ (NOT FOR IM USE) IV PRN (05:15)
[2020-05-30] MEDS ORDERED: ACETAMINOPHEN 325MG TABLET PO PRN ×2 (05:15→09:15)
[2020-05-30] MEDS ORDERED: CLONIDINE 0.1MG TABLET PO PRN (05:15)
[2020-05-30] MEDS: HYDRALAZINE HCL 50MG TABLET PO SCH ×3 (05:32→21:21)
[2020-05-30] MEDS ORDERED: METOPROLOL TARTRATE 5MG/5ML VIAL IV ONE (08:30)
[2020-05-30] MEDS ORDERED: METOPROLOL TARTRATE 5MG/5ML VIAL IV SCH (08:30)
[2020-05-30] MEDS ORDERED: SODIUM CHLORIDE 0.9% 10ML VIAL ONE (09:00)
[2020-05-30] MEDS ORDERED: GABAPENTIN 300MG CAPSULE PO PRN (09:00)
[2020-05-30] MEDS ORDERED: VECURONIUM BROMIDE 10 MG/VIAL IV ONE ×2 (09:00→10:45)
[2020-05-30] MEDS: METOPROLOL TARTRATE 50MG TABLET PO SCH ×2 (09:00→20:33)
[2020-05-30] MEDS: AMLODIPINE 10MG TABLET PO SCH (09:00)
[2020-05-30] MEDS: NICARDIPINE 100 MG in SODIUM CHLORIDE 0.9% 60 ML IV PRN (09:30)
[2020-05-30] MEDS: PROPOFOL 10MG/ML 100ML 100 ML IV PRN ×2 (09:33→21:21)
[2020-05-30 09:40] LABS: BG BASE EXCESS -10.6 mmol/L (-2.0-2.0); BG CARBOXYHEMOGLOBIN 0.2 % (0.5-1.5); BG DEOXYHEMOGLOBIN 0.8 % (0.0-5.0); BG FRACTION INSPIRED OXYGEN 100; BG HCO3 ACT 15.4 mmol/L (22.0-26.0); BG METHEMOGLOBIN 0.6 % (0.0-1.5); BG OXYGEN SATURATION 99.2 % (92.0-98.5); BG OXYHEMOGLOBIN 98.4 % (94.0-97.0); BG PCO2 34.7 mmHg (35.0-45.0); BG PH 7.265 (7.350-7.450); BG PO2 489.3 mmHg (75.0-100.0); BG SAMPLE SITE RIGHT RADIAL; BG TOTAL HEMOGLOBIN 10.3 g/dL (12.0-18.0); BG TOTAL RESPIRATORY RATE 37 b/min; BG VENT MODE VENT - AC
[2020-05-30] MEDS ORDERED: MORPHINE SULFATE 4 MG/ML CPJ (NOT FOR IM USE) IV PRN (09:45)
[2020-05-30] MEDS ORDERED: DEXAMETHASONE 10 MG/ML VIAL IV SCH (10:00)
[2020-05-30 10:13] LABS: BASOPHILS % 0.3 % (0.0-2.0); EOSINOPHILS % 2.4 % (0.0-5.0); HEMATOCRIT. 27.5 % (42.0-52.0); HEMOGLOBIN. 9.2 g/dL (14.0-18.0); LYMPHOCYTES % 15.6 % (20.0-50.0); MEAN CORPUSCULAR HEMOGLOBIN 38.6 pg (28.0-32.0); MEAN CORPUSCULAR VOLUME 115.8 fL (80.0-94.0); MEAN PLATELET VOLUME 8.2 fl (7.4-10.4); MONOCYTES % 10.6 % (2.0-8.0); NEUTROPHILS % 71.1 % (40.0-76.0); PLATELET 127 x1000/uL (130-400); RED BLOOD CELL COUNT 2.38 mill/uL (4.7-6.1); RED CELL DISTRIBUTION WIDTH 19.6 % (11.6-14.6)
[2020-05-30] MEDS ORDERED: ONDANSETRON HCL 4MG/2ML INJ IV PRN (10:15)
[2020-05-30] MEDS ORDERED: ACETAMINOPHEN 650MG SUPP PR PRN (10:15)
[2020-05-30 10:16] LABS: PROTHROMBIN TIME 10.8 sec (9.6-11.0)
[2020-05-30] MEDS ORDERED: POTASSIUM CHLORIDE INJ 40 MEQ in DEXT 5% WATER 250 ML IV SCH (11:00)
[2020-05-30] MEDS ORDERED: MORPHINE SULFATE 4 MG/ML CPJ (NOT FOR IM USE) IV SCH (11:00)
[2020-05-30] MEDS ORDERED: MANNITOL 20% (20GM/100ML) BAG 500ML PREMIX IV SCH (11:00)
[2020-05-30] MEDS ORDERED: SODIUM BICARBONATE 8.4% 1 MEQ/ML 50ML SYR IV NR (11:23)
[2020-05-30] MEDS ORDERED: BLOOD SUGAR DIAGNOSTIC STRIP TEST SCH ×2 (11:30→12:20)
[2020-05-30 12:36] LABS: BG BASE EXCESS -2.5 mmol/L (-2.0-2.0); BG CARBOXYHEMOGLOBIN 0.2 % (0.5-1.5); BG DEOXYHEMOGLOBIN 1.1 % (0.0-5.0); BG METHEMOGLOBIN 0.3 % (0.0-1.5); BG OXYGEN SATURATION 98.9 % (92.0-98.5); BG OXYHEMOGLOBIN 98.4 % (94.0-97.0); BG PCO2 31.2 mmHg (35.0-45.0); BG PH 7.445 (7.350-7.450); BG PO2 239.4 mmHg (75.0-100.0); BG SAMPLE SITE RIGHT RADIAL; BG TOTAL HEMOGLOBIN 9.5 g/dL (12.0-18.0); BG VENT MODE VENT - AC
[2020-05-30] MEDS ORDERED: LIDOCAINE HCL 1% 20ML VIAL (Pyxis) INJ ONE (13:03)
[2020-05-30] MEDS: PANTOPRAZOLE SODIUM 40 MG/VIAL IV SCH (13:25)
[2020-05-30] MEDS: DEXT 5%/LACTATED RINGERS 1,000 ML IV SCH (16:09)
[2020-05-30] MEDS: DOCUSATE SODIUM 100MG CAPSULE NG SCH (17:00)
[2020-05-30 18:00] LABS: HEPATITIS B SURFACE ANTIGEN NEGATIVE
[2020-05-30] MEDS: BLOOD SUGAR DIAGNOSTIC STRIP TEST SCH ×2 (18:00→23:08)
[2020-05-30] MEDS ORDERED: DEXTROSE 50% WATER 50ML SYRINGE IV PRN (18:00)
[2020-05-30] MEDS: DEXAMETHASONE 4MG/ML 1ML VIAL IV SCH ×2 (18:26→23:12)
[2020-05-30] MEDS: INSULIN LISPRO 100 UNITS/ML SUBCUT SCH ×2 (18:27→23:13)
[2020-05-30 18:29] LABS: HEPATITIS A AB IGM NEGATIVE (NEGATIVE)
[2020-05-30] MEDS: ATORVASTATIN CALCIUM 40MG TABLET PO SCH (20:33)
[2020-05-31] VITALS (97 sets, daily range): BP systolic 106–143; BP diastolic 64–92
[2020-05-31] MEDS: PROPOFOL 10MG/ML 100ML 100 ML IV PRN (02:25)
[2020-05-31] MEDS: NICARDIPINE 100 MG in SODIUM CHLORIDE 0.9% 60 ML IV PRN (03:35)
[2020-05-31] MEDS: INSULIN LISPRO 100 UNITS/ML SUBCUT SCH ×4 (05:03→23:26)
[2020-05-31] MEDS: HYDRALAZINE HCL 50MG TABLET PO SCH ×3 (05:04→21:03)
[2020-05-31] MEDS: DEXAMETHASONE 4MG/ML 1ML VIAL IV SCH ×4 (05:04→23:26)
[2020-05-31] MEDS: BLOOD SUGAR DIAGNOSTIC STRIP TEST SCH ×4 (05:04→23:26)
[2020-05-31 05:44] LABS: HEMATOCRIT. 27.4 % (42.0-52.0); HEMOGLOBIN. 9.4 g/dL (14.0-18.0); MEAN CORPUSCULAR VOLUME 116.5 fL (80.0-94.0); MEAN PLATELET VOLUME 8.8 fl (7.4-10.4); PLATELET 100 x1000/uL (130-400); RED BLOOD CELL COUNT 2.35 mill/uL (4.7-6.1); RED CELL DISTRIBUTION WIDTH 19.7 % (11.6-14.6)
[2020-05-31] MEDS: LEVETIRACETAM 500MG PREMIX 100 ML IV SCH ×2 (08:43→21:02)
[2020-05-31] MEDS: PANTOPRAZOLE SODIUM 40 MG/VIAL IV SCH (08:43)
[2020-05-31] MEDS: DOCUSATE SODIUM 100MG CAPSULE NG SCH ×2 (08:43→16:26)
[2020-05-31] MEDS: METOPROLOL TARTRATE 50MG TABLET PO SCH ×2 (08:43→21:03)
[2020-05-31] MEDS: AMLODIPINE 10MG TABLET PO SCH (08:44)
[2020-05-31 08:50] LABS: BG CARBOXYHEMOGLOBIN 0.3 % (0.5-1.5); BG DEOXYHEMOGLOBIN 10.2 % (0.0-5.0); BG FRACTION INSPIRED OXYGEN 40; BG HCO3 ACT 19.1 mmol/L (22.0-26.0); BG METHEMOGLOBIN 0.3 % (0.0-1.5); BG OXYGEN SATURATION 89.7 % (92.0-98.5); BG OXYHEMOGLOBIN 89.2 % (94.0-97.0); BG PH 7.394 (7.350-7.450); BG PO2 63.1 mmHg (75.0-100.0); BG SAMPLE SITE RIGHT RADIAL; BG TOTAL HEMOGLOBIN 9.8 g/dL (12.0-18.0); BG TOTAL RESPIRATORY RATE 20 b/min; BG VENT MODE VENT - AC
[2020-05-31 09:35] LABS: PLATELET ESTIMATE DECREASED
[2020-05-31] MEDS ORDERED: PROPOFOL 10MG/ML 100ML 100 ML IV PRN (09:45)
[2020-05-31] MEDS: DEXT 5%/LACTATED RINGERS 1,000 ML IV SCH (09:57)
[2020-05-31] MEDS ORDERED: MAGNESIUM 2 G PREMIX 50 ML IV SCH (11:00)
[2020-05-31] MEDS: ATORVASTATIN CALCIUM 40MG TABLET PO SCH (21:02)
[2020-06-01] VITALS (93 sets, daily range): BP systolic 111–132; BP diastolic 47–88
[2020-06-01 05:36] LABS: HEMATOCRIT. 26.3 % (42.0-52.0); HEMOGLOBIN. 8.9 g/dL (14.0-18.0); MEAN CORPUSCULAR HEMOGLOBIN 39.3 pg (28.0-32.0); MEAN CORPUSCULAR VOLUME 116.5 fL (80.0-94.0); MEAN PLATELET VOLUME 9.8 fl (7.4-10.4); PLATELET 95 x1000/uL (130-400); RED BLOOD CELL COUNT 2.26 mill/uL (4.7-6.1); RED CELL DISTRIBUTION WIDTH 19.1 % (11.6-14.6)
[2020-06-01] MEDS: INSULIN LISPRO 100 UNITS/ML SUBCUT SCH ×3 (06:00→17:47)
[2020-06-01] MEDS: HYDRALAZINE HCL 50MG TABLET PO SCH ×3 (06:10→22:57)
[2020-06-01] MEDS: DEXAMETHASONE 4MG/ML 1ML VIAL IV SCH ×2 (06:10→12:07)
[2020-06-01] MEDS: BLOOD SUGAR DIAGNOSTIC STRIP TEST SCH ×3 (06:34→17:47)
[2020-06-01] MEDS: METOPROLOL TARTRATE 50MG TABLET PO SCH ×2 (08:47→21:16)
[2020-06-01] MEDS: PANTOPRAZOLE SODIUM 40 MG/VIAL IV SCH (08:47)
[2020-06-01] MEDS: DOCUSATE SODIUM 100MG CAPSULE NG SCH ×2 (08:47→17:50)
[2020-06-01] MEDS: LEVETIRACETAM 500MG PREMIX 100 ML IV SCH ×2 (08:47→20:07)
[2020-06-01] MEDS: AMLODIPINE 10MG TABLET PO SCH (08:48)
[2020-06-01] MEDS ORDERED: FUROSEMIDE 40MG/4ML VIAL IVP NR (09:00)
[2020-06-01] MEDS: DEXT 5%/LACTATED RINGERS 1,000 ML IV SCH (09:13)
[2020-06-01 09:19] LABS: BG BASE EXCESS -4.4 mmol/L (-2.0-2.0); BG CARBOXYHEMOGLOBIN 0.3 % (0.5-1.5); BG FRACTION INSPIRED OXYGEN 50; BG HCO3 ACT 19.3 mmol/L (22.0-26.0); BG METHEMOGLOBIN 0.4 % (0.0-1.5); BG OXYHEMOGLOBIN 97.3 % (94.0-97.0); BG PCO2 30.3 mmHg (35.0-45.0); BG PH 7.422 (7.350-7.450); BG PO2 116.3 mmHg (75.0-100.0); BG SAMPLE SITE RIGHT RADIAL; BG TOTAL HEMOGLOBIN 9.4 g/dL (12.0-18.0); BG VENT MODE VENT - AC
[2020-06-01 10:12] LABS: CREATINE KINASE 143 IU/L (39-308)
[2020-06-01 10:29] LABS: PLATELET ESTIMATE DECREASED
[2020-06-01] MEDS: NICARDIPINE 100 MG in SODIUM CHLORIDE 0.9% 60 ML IV PRN (18:12)
[2020-06-01] MEDS: ATORVASTATIN CALCIUM 40MG TABLET PO SCH (21:16)
[2020-06-01] MEDS ORDERED: SUCCINYLCHOLINE CHLORIDE 200MG/10ML IV ONE (23:00)
[2020-06-01] MEDS ORDERED: ETOMIDATE 2MG/ML 10ML VIAL IV ONE (23:00)
[2020-06-01] MEDS ORDERED: ATROPINE SULFATE 1MG/10ML SYR ONE (23:00)
[2020-06-02] VITALS (102 sets, daily range): BP systolic 111–139; BP diastolic 58–86
[2020-06-02] MEDS: BLOOD SUGAR DIAGNOSTIC STRIP TEST SCH ×5 (00:05→23:54)
[2020-06-02] MEDS: DEXT 5%/LACTATED RINGERS 1,000 ML IV SCH ×2 (03:13→22:50)
[2020-06-02] MEDS: PROPOFOL 10MG/ML 100ML 100 ML IV PRN ×2 (03:13→20:29)
[2020-06-02] MEDS: HYDRALAZINE HCL 50MG TABLET PO SCH ×3 (05:47→21:02)
[2020-06-02] MEDS: INSULIN LISPRO 100 UNITS/ML SUBCUT SCH ×4 (05:57→17:24)
[2020-06-02 07:02] LABS: BG BASE EXCESS -1.2 mmol/L (-2.0-2.0); BG CARBOXYHEMOGLOBIN 0.3 % (0.5-1.5); BG DEOXYHEMOGLOBIN 1.8 % (0.0-5.0); BG FRACTION INSPIRED OXYGEN 40; BG METHEMOGLOBIN 0.5 % (0.0-1.5); BG OXYGEN SATURATION 98.2 % (92.0-98.5); BG OXYHEMOGLOBIN 97.4 % (94.0-97.0); BG PCO2 31.4 mmHg (35.0-45.0); BG PH 7.463 (7.350-7.450); BG PO2 127.8 mmHg (75.0-100.0); BG SAMPLE SITE RIGHT RADIAL; BG TOTAL HEMOGLOBIN 10.4 g/dL (12.0-18.0); BG VENT MODE VENT - AC
[2020-06-02] MEDS: PANTOPRAZOLE SODIUM 40 MG/VIAL IV SCH (09:35)
[2020-06-02] MEDS: LEVETIRACETAM 500MG PREMIX 100 ML IV SCH ×2 (09:35→20:39)
[2020-06-02] MEDS: AMLODIPINE 10MG TABLET PO SCH (09:36)
[2020-06-02] MEDS: DOCUSATE SODIUM 100MG CAPSULE NG SCH ×2 (09:42→17:24)
[2020-06-02] MEDS: METOPROLOL TARTRATE 50MG TABLET PO SCH ×2 (09:42→20:29)
[2020-06-02] MEDS: NITROGLYCERIN OINT 1GM/INCH UDPKT TD SCH ×2 (14:51→21:02)
[2020-06-02] MEDS: NICARDIPINE 100 MG in SODIUM CHLORIDE 0.9% 60 ML IV PRN (15:11)
[2020-06-02] MEDS: ATORVASTATIN CALCIUM 40MG TABLET PO SCH (20:28)
[2020-06-03] VITALS (91 sets, daily range): BP systolic 107–156; BP diastolic 58–91
[2020-06-03] MEDS: BLOOD SUGAR DIAGNOSTIC STRIP TEST SCH ×2 (05:18→11:40)
[2020-06-03] MEDS: HYDRALAZINE HCL 50MG TABLET PO SCH (05:33)
[2020-06-03] MEDS: INSULIN LISPRO 100 UNITS/ML SUBCUT SCH ×3 (05:33→11:40)
[2020-06-03] MEDS: NITROGLYCERIN OINT 1GM/INCH UDPKT TD SCH ×2 (05:33→13:51)
[2020-06-03] MEDS ORDERED: FUROSEMIDE 40MG/4ML VIAL IVP SCH (09:00)
[2020-06-03] MEDS: PANTOPRAZOLE SODIUM 40 MG/VIAL IV SCH (09:10)
[2020-06-03] MEDS: DOCUSATE SODIUM 100MG CAPSULE NG SCH (09:10)
[2020-06-03] MEDS: LEVETIRACETAM 500MG PREMIX 100 ML IV SCH (09:10)
[2020-06-03] MEDS: METOPROLOL TARTRATE 50MG TABLET PO SCH (09:10)
[2020-06-03] MEDS: AMLODIPINE 10MG TABLET PO SCH (09:10)
[2020-06-03 12:33] LABS: HEMATOCRIT. 29.6 % (42.0-52.0); HEMOGLOBIN. 9.9 g/dL (14.0-18.0); MEAN CORPUSCULAR HEMOGLOBIN 38.3 pg (28.0-32.0); MEAN PLATELET VOLUME 9.6 fl (7.4-10.4); PLATELET 116 x1000/uL (130-400); RED BLOOD CELL COUNT 2.58 mill/uL (4.7-6.1); RED CELL DISTRIBUTION WIDTH 18.7 % (11.6-14.6)
[2020-06-03 13:11] LABS: PLATELET ESTIMATE SLIGHTLY DECREASED
[2020-06-03] MEDS ORDERED: HYDRALAZINE HCL 50MG TABLET PO SCH (14:00)
[2020-06-03] MEDS: NICARDIPINE 100 MG in SODIUM CHLORIDE 0.9% 60 ML IV PRN (14:51)
[2020-06-03] MEDS ORDERED: MORPHINE SULFATE 2 MG/ML CPJ (NOT FOR IM USE) IV PRN (18:00)
[2020-06-04] VITALS: BP 110/72
[2020-06-04 00:15] VITALS: BP 139/82
[2020-06-04 00:30] VITALS: BP 108/59
== END 2020-06-04 01:45 | disposition expired | DRG 21 ==
LOC: ER 20:12 → 6WST 05-30 00:23 → ENRESERV 05-30 02:06 → MICUNO 05-30 08:58
PROVIDERS: ADMIT Internal Medicine; ATTEND Internal Medicine
PROC: 009600Z Drainage of Cerebral Ventricle with Drainage Device, Open Approach (ICD-10-PCS; principal; 2020-05-30)
PROC: 0BH17EZ Insertion of Endotracheal Airway into Trachea, Via Natural or Artificial Opening (ICD-10-PCS; 2020-05-30)
PROC: 5A1955Z Respiratory Ventilation, Greater than 96 Consecutive Hours (ICD-10-PCS; 2020-05-30)
PROC: B548ZZA Ultrasonography of Superior Vena Cava, Guidance (ICD-10-PCS; 2020-05-30)
PROC: 02HV33Z Insertion of Infusion Device into Superior Vena Cava, Percutaneous Approach (ICD-10-PCS; 2020-05-30)
DX: I61.5 Nontraumatic intracerebral hemorrhage, intraventricular (principal); I61.3 Nontraumatic intracerebral hemorrhage in brain stem; J96.00 Acute respiratory failure, unspecified whether with hypoxia or hypercapnia; E83.42 Hypomagnesemia; E44.0 Moderate protein-calorie malnutrition; Z66 Do not resuscitate; I12.9 Hypertensive chronic kidney disease with stage 1 through stage 4 chronic kidney disease, or unspecified chronic kidney disease; N18.30 Chronic kidney disease, stage 3 unspecified; N17.0 Acute kidney failure with tubular necrosis; R40.20 Unspecified coma; G93.5 Compression of brain; G93.2 Benign intracranial hypertension; G91.9 Hydrocephalus, unspecified; E87.6 Hypokalemia; G93.40 Encephalopathy, unspecified; D69.6 Thrombocytopenia, unspecified; D64.9 Anemia, unspecified; E78.5 Hyperlipidemia, unspecified; E87.2 Acidosis; F12.90 Cannabis use, unspecified, uncomplicated; G31.9 Degenerative disease of nervous system, unspecified; I42.9 Cardiomyopathy, unspecified; K76.0 Fatty (change of) liver, not elsewhere classified; M70.20 Olecranon bursitis, unspecified elbow; I95.9 Hypotension, unspecified; R73.9 Hyperglycemia, unspecified; Z98.2 Presence of cerebrospinal fluid drainage device; Z86.718 Personal history of other venous thrombosis and embolism; Z88.2 Allergy status to sulfonamides; Z88.8 Allergy status to other drugs, medicaments and biological substances; Z79.899 Other long term (current) drug therapy; Z68.23 Body mass index [BMI] 23.0-23.9, adult
CPT/HCPCS: 36415; 36600; 71045; 73080; 76700; 76937; 80048; 80053; 80061; 80076; 80305; 80320; 81003; 82105; 82140; 82248; 82375; 82550; 82805; 82962; 83036; 83735; 83880; 84100; 84443; 84484; 85025; 85384; 86705; 86709; 86803; 87340; 93005; 93306; 93970; 94002; 99285; C1725; C9113; J0330; J0461; J0696; J1100; J1815; J1940; J1953; J2270; J2704; J3475; J3480; J3490; J7030; J7050; J7060; J7121; G0480